=== PATIENT | male | born 1945 | race Hispanic/Latino ===

== ENCOUNTER 2017-11-03 12:30 | Observation (INO) | payer MEDICARE ==
[~2017-11-03] VITALS: Ht 157.5 cm; Wt 70.3 kg
[2017-11-03 13:20] VITALS: BP 149/70
[2017-11-03 13:41] LABS: BASOPHILS % (AUTO) 0.7 % (0.0-5.0); EOSINOPHILS % (AUTO) 2.3 % (0.0-8.0); HEMATOCRIT 36.9 % (42-54); LYMPHOCYTES % (AUTO) 31.9 % (21.0-51.0); MEAN CORPUSCULAR HEMOGLOBIN 29.9 pg (27.0-33.0); MEAN CORPUSCULAR HGB CONC 33.5 g/dL (32.0-36.0); MEAN CORPUSCULAR VOLUME 89.2 fL (79-99); MONOCYTES % (AUTO) 9.6 % (3.0-13.0); NEUTROPHILS % (AUTO) 55.5 % (40.0-77.0); PLATELET COUNT (AUTO) 202 K/uL (130-400); RED BLOOD CELL COUNT(AUTO) 4.14 MIL/uL (4.50-6.20); RED CELL DISTRIBUTION WIDTH 14.6 % (11.0-15.5); WHITE BLOOD COUNT (AUTO) 8.2 K/uL (4.8-10.8)
[2017-11-03] MEDS ORDERED: ATEN100T PO (13:42)
[2017-11-03] MEDS ORDERED: FINA5TAB2 PO (13:42)
[2017-11-03] MEDS ORDERED: LISI10TA7 PO (13:42)
[2017-11-03] MEDS ORDERED: ATOR10TA69 PO (13:42)
[2017-11-03] MEDS ORDERED: LOVA10TA2 PO (13:42)
[2017-11-03] MEDS ORDERED: TRAM50TA4 PO (13:42)
[2017-11-03 13:50] LABS: CREATININE 1.1 mg/dL (0.5-1.5); POTASSIUM 4.5 mmol/L (3.5-5.1)
[2017-11-06] VITALS (22 sets, daily range): BP systolic 118–149; BP diastolic 62–86
[2017-11-06] MEDS ORDERED: LACTATED RINGERS 1000ML 1,000 ML IV ONE (06:50)
[2017-11-06] MEDS ORDERED: WATER FOR INJECTION,STERILE 20 ML VIAL ONE (06:51)
[2017-11-06] MEDS: CEFTRIAXONE SODIUM 1 GM IVP SCH ×2 (07:00→08:18)
[2017-11-06] MEDS ORDERED: CIPR-245 PO (07:05)
[2017-11-06] MEDS ORDERED: ESOM40SU PO (07:05)
[2017-11-06] MEDS ORDERED: TAMS0.4C32 PO (07:05)
[2017-11-06] MEDS ORDERED: ONDANSETRON HCL 4 MG/2 ML VIAL ONE (07:45)
[2017-11-06] MEDS ORDERED: MIDAZOLAM HCL 1 MG/ML 2ML VIAL ONE (07:45)
[2017-11-06] MEDS ORDERED: GLYCOPYRROLATE 0.2 MG/ML 5 ML VIAL ONE (07:45)
[2017-11-06] MEDS ORDERED: PROPOFOL 10 MG/ML 20ML VIAL IV ONE (07:45)
[2017-11-06] MEDS ORDERED: DEXAMETHASONE SOD PHOSPHATE 10MG/ML 1ML VIAL ONE (07:45)
[2017-11-06] MEDS ORDERED: LIDOCAINE PF 2% 5ML ABBOJECT ONE (07:45)
[2017-11-06] MEDS ORDERED: FENTANYL CITRATE PF 50 MCG/1 ML 2ML VIAL ONE (07:46)
[2017-11-06] MEDS ORDERED: EPHEDRINE SULFATE 50 MG/ML AMPULE ONE ×2 (08:21→08:52)
[2017-11-06] MEDS: LACTATED RINGERS 1000ML 1,000 ML IV SCH ×2 (11:28→21:15)
[2017-11-06] MEDS ORDERED: PANTOPRAZOLE SODIUM 40 MG TABLET.DR PO PRN (11:45)
[2017-11-06] MEDS ORDERED: TRAMADOL HCL 50 MG TABLET PO PRN (11:45)
[2017-11-06] MEDS ORDERED: KETOROLAC TROMETHAMINE 15MG/ML IM PRN (12:00)
[2017-11-06] MEDS: LEVOFLOXACIN 500 MG TABLET PO SCH (12:30)
[2017-11-06] MEDS ORDERED: CIPROFLOXACIN HCL 500 MG TABLET PO SCH (21:00)
[2017-11-06] MEDS ORDERED: ATORVASTATIN CALCIUM 10 MG TABLET PO SCH (21:00)
[2017-11-06] MEDS ORDERED: TAMSULOSIN HCL 0.4 MG CAP.ER.24H PO SCH (21:00)
[2017-11-07] VITALS: BP 116/66
[2017-11-07 04:00] VITALS: BP 99/60
[2017-11-07] MEDS: CEFTRIAXONE SODIUM 1 GM IVP SCH (04:27)
[2017-11-07] MEDS: LACTATED RINGERS 1000ML 1,000 ML IV SCH (04:27)
[2017-11-07 05:43] LABS: HEMATOCRIT 33.6 % (42-54)
[2017-11-07 07:56] VITALS: BP 136/74
[2017-11-07 08:07] VITALS: BP 136/74
[2017-11-07] MEDS: LEVOFLOXACIN 500 MG TABLET PO SCH (08:11)
[2017-11-07] MEDS ORDERED: FINASTERIDE 5 MG TABLET PO SCH (09:00)
[2017-11-07] MEDS ORDERED: LISINOPRIL 10 MG TABLET PO SCH (09:00)
[2017-11-07] MEDS ORDERED: ATENOLOL 50 MG TABLET PO SCH (09:00)
== END 2017-11-07 13:15 | disposition home or self-care (01) ==
LOC: DAHIP 11-06 05:43 → 4AH 11-06 10:37 → EDSTATUS 11-06 12:30
PROVIDERS: ADMIT Surgery; ATTEND Surgery
DX: N40.1 Benign prostatic hyperplasia with lower urinary tract symptoms (principal); R33.8 Other retention of urine; E78.5 Hyperlipidemia, unspecified; E78.00 Pure hypercholesterolemia, unspecified; K21.9 Gastro-esophageal reflux disease without esophagitis; I12.9 Hypertensive chronic kidney disease with stage 1 through stage 4 chronic kidney disease, or unspecified chronic kidney disease; N18.2 Chronic kidney disease, stage 2 (mild); Z98.890 Other specified postprocedural states; Z79.899 Other long term (current) drug therapy
CPT/HCPCS: 36415 ×2; 52630; 76942; 80048; 82948; 85025; 87088; 87186; 88305; 93005; A4215; A4354; A4358; C1758; G0378 ×33; J0696; J1100; J2001; J2250; J2405; J2704; J3010; J3490 ×3; J7030; J7120 ×2